=== PATIENT | male | born 1945 | race Caucasian/White ===

== ENCOUNTER → 2017-06-26 | Outpatient (CLI) | payer OTHER, BC ==
[~2017-06-26] VITALS: Ht 185.4 cm; Wt 102.1 kg
[~2017-06-26] MED LIST: BLUEBERRY EXTRACT PO; CARAFATE 1 GM TA1 G1 PO; CO Q-10100 MG PO; FIBER500 MG PO; FLOMAX0.4 MG PO; GREEN TEA CAPL1 EACH PO; OMEPRAZOLE40 MG PO; PREVAGEN PO; VITAMIN B-COMP1 EAC3 PO; [UNRECOGNIZED DRUG - OTHER] PO; [UNRECOGNIZED DRUG - OTHER] PO
--- NOTE | ~2017-06-26 | P ---
[facility] [place] [address] PROCEDURE REPORT Name: TATUM APONTE Room #: REG [facility]#: [id number] Admission: 06/26/17 Attend Phys: Cliff Estevez MD Discharge: Date of : 49 Report #: [id number] THIS REPORT FOR: //name// CC: Cliff Tidwell MD BRIEF HISTORY: The patient is a 72-year-old male with a history of reflux esophagitis. Previous endoscopy 2-3 years ago revealed significant erosive esophagitis and ulceration. He has been taking a proton pump inhibitor and developed increasing retrosternal symptoms as well as complaints of early satiety. He developed these symptoms on therapy. He does have a history of diabetes. PREOPERATIVE DIAGNOSIS: Reflux disease with worsening symptoms on therapy. POSTOPERATIVE DIAGNOSES: 1. Mild erythematous antral gastritis. 2. Small sliding hiatus hernia. MEDICATIONS: Deep sedation with propofol per anesthesia. SPECIMEN: None. ESTIMATED BLOOD LOSS: None. . FINDINGS: Prior to propofol sedation, the procedure of upper endoscopy was discussed with the patient as well as potential risks, benefits, and complications. He indicates he understands and desires to proceed. With the patient in left lateral decubitus position, the [employer]PL[employer] video endoscope was inserted in the cervical esophagus under direct vision without difficulty. Examination of this organ through its entire length revealed normal esophageal mucosa down the squamocolumnar junction. The squamocolumnar junction was inspected and noted be intact. No ulcers or erosions were seen. There was no evidence of Castellon esophagus. No strictures or masses were seen. Intermittently, a small 1-2 cm sliding type hiatus hernia was seen. The mucosa and hernia was unremarkable. The scope was advanced into the stomach, was examined on end view as well as retroflexed views. There was erythema in the antrum. It is noted that previous biopsies for H. pylori were negative, those were not repeated today. He does take an Aleve today. No ulcers or erosions were seen. Upon retroflexion, no mass lesions were seen. With regard to symptoms of early satiety, no retained solids or liquids were seen in the stomach. There was no evidence of outlet obstruction. The pylorus, duodenal bulb and postbulbar sweep were inspected and noted to be unremarkable. At that [address] [address] PROCEDURE REPORT Name: FAYTATUM Newton [id number] Admission: 06/26/17 Attend Phys: Cliff Estevez MD Discharge: Date of : 49 Report #: [id number] point, the scope was slowly withdrawn and careful circumferential views confirmed the above findings. The patient tolerated the procedure well. CONDITION OF THE PATIENT UPON DISCHARGE: Following procedure, the patient drowsy and arousable, he will be discharged home when fully ambulatory. INSTRUCTIONS TO THE PATIENT AND FAMILY AT THE TIME OF DISCHARGE: I do not find evidence of significant esophageal disease on today's exam. However, it is possible he may have reflux. We will have him increase his omeprazole to 40 mg twice daily. He also was given sucralfate by Dr. Tidwell, which he felt was somewhat helpful. This potentially could help with bile reflux and bile gastritis. However, bile was not seen in his stomach today. the bile reflux is not an issue. We will have him continue the sucralfate at least on a short term basis. He does have complaints of early satiety and does have diabetes. We will have him return for a gastric emptying study for further evaluation. If symptoms persist, ultrasound of the gallbladder to evaluate for gallbladder disease would be a consideration as well. He will return to the care of Dr. Tidwell. He should followup in our office if symptoms did not improve. If he does well on twice daily pantoprazole after 8 weeks, he may try to reduce back to 1 daily. In the long-term, he should aim for the lowest possible dose to control symptoms. <ELECTRONICALLY SIGNED> By: Cliff Estevez MD 06/28/17 [id number] Cliff Estevez MD /nt
== END | disposition home or self-care (01) ==
LOC: GI 08:24
DX: K29.60 Other gastritis without bleeding (principal); K44.9 Diaphragmatic hernia without obstruction or gangrene; E11.9 Type 2 diabetes mellitus without complications; N40.1 Benign prostatic hyperplasia with lower urinary tract symptoms; Z85.828 Personal history of other malignant neoplasm of skin; Z98.41 Cataract extraction status, right eye; Z98.42 Cataract extraction status, left eye; Z96.652 Presence of left artificial knee joint; Z98.890 Other specified postprocedural states; Z79.899 Other long term (current) drug therapy